=== PATIENT | female | born 1995 ===

== ENCOUNTER 2024-03-29 15:22 | Inpatient (IN) ==
[2024-03-29] MEDS ORDERED: CALCIUM CARBONATE 500 MG CHEWABLE TAB PO PRN (16:26)
[2024-03-29] MEDS ORDERED: LIDOCAINE 1% LOCAL 20 ML VIAL INFIL PRN (16:26)
[2024-03-29] MEDS: PENICILLIN GK 6 MU in SODIUM CHLORIDE 0.9% 250 ML IV STA (16:54)
[2024-03-29] MEDS: SODIUM CHLORIDE 0.9% 1,000 ML IV SCH (16:54)
[2024-03-29] MEDS ORDERED: INFLUENZA VACC TS2024-25(6m+)/PF (IIV3) 0.5mL Syr IM ONE (16:57)
[2024-03-29 17:02] LABS: Hematocrit (blood only) 35.5 % (37.0-47.0); Hemoglobin 11.9 g/dl (12.0-16.0); Mean Corpuscular Hemoglobin 31.6 pg (25.0-34.0); Mean Corpuscular Hgb Conc 33.5 g/dL (32.0-36.0); Mean Corpuscular Volume 94.2 fL (80.0-100.0); Mean Platelet Volume 10.8 fL (9.4-12.4); Platelet Count 209 K/uL (130-400); RDW Coefficient of Variation 12.2 % (11.5-14.5); RDW Standard Deviation 41.7 fL (36.4-46.3); Red Blood Count 3.77 M/uL (4.20-5.40); White Blood Count 7.71 K/ul (4.8-10.8)
[2024-03-29] MEDS ORDERED: SODIUM CHLORIDE 0.9% 500 ML IV ONE (17:08)
--- NOTE | 2024-03-29 17:22 | History & Physical Report ---
Date of Service March 29, 2024 Assessment & Plan (1) Encounter for supervision of normal intrauterine in primigravida, antepartum: Plan: Intrauterine at 39+ weeks in labor with probable ruptured membranes most likely following cervical exam. Will start group B strep prophylaxis. Once antibiotic has infused, and heart tracing is reactive, she is requesting to ambulate. Epidural if requested. Anticipate vaginal . History of Present Illness Primary Care Provider: NO PCP Patient is a 28-year-old female EDC 04/02/2024 who presents at 39-3/7 weeks with regular contractions and bloody show. Contractions began at 440 this morning and became more regular approximately noon today. They are now about every 5 minutes consistently. She describes several episodes of " gushes of blood" every time she urinated starting at 4:30 in the morning. She cannot decide if this was just blood or mixed with fluid or mucus. c omplicated by velamentous cord insertion and an episode of abdominal pain at 28 weeks [place] [facility] [place] Consequently it was felt her pain was because of a degenerating fibroid in the fundus of the uterus. GBS positive Allergies Allergy/AdvReac Type Severity Reaction Status Date / Time No Known Drug Allergies Allergy Verified 03/26/24 14:47 Home Medications Medication Instructions Recorded Confirmed Type vits no.126-ferrous fum 1 tab PO DAILY #30 tabs 08/25/23 03/29/24 Rx 28 mg iron-folic acid 800 mcg tablet (Classic ) Patient History Surgical History No pertinent past surgical history Family History (Updated 08/18/23 @ 11:37 by Eugenia Delgado RN) Aunt Diabetes Goiter Denies family history of Ovarian cancer Breast cancer Colorectal cancer Social History (Updated 08/18/23 @ 11:38 by Eugenia Delgado RN) Smoking Status: Never smoker Second Hand Exposure: No; Do You Dip or Chew Tobacco: No; Hx Alcohol Use: No Hx Substance Use: No Preferred Language: Luxembourgish Communication Ability: Effective Telephone Information Clerk Required: No Beliefs That Will Affect Care: None marital status: Single marital status details: Rick Leavitt (27) [phone] Current Living Situation: Alone Current Living Situation Comment: Lives with 3 roommates current occupational status: student current occupation: Student at [employer] Other Information That Helps Us Care for You: No Feels Safe at Home: Yes Safety Concerns: Feels Safe At This Time Review of Systems All systems reviewed & are unremarkable except as noted in HPI & below Physical Exam Constitutional: WD/WN, vitals as above Psychiatric: A+Ox3, euthymic affect Genitourinary: OB Exam Abdomen: + vertex, + estimated weight (7-8 pounds) and + regular contractions Manual OB Exam: + cervical dilation (2-3), + cervical effacement 80% and + station -2 OB Exam Monitor Tracing: + external FHT monitor used, + external uterine monitor used, + category I and + normal FHT variability Following the cervical exam, there was a gush of obvious fluid. Nitrazine was not done since history of episodic bleeding with urination. Ferning was equivocal. Results & Data Vital Signs (Past 12 Hours) Vital Signs Temp Pulse Resp BP 03/29/24 15:53 97.9 F 98 H 16 110/69 03/29/24 15:43 98 H 110/69 Code Status & VTE Plan VTE Prophylaxis Plan VTE Prophylaxis will be ordered: No Coding Level of Care Code 57671 INT INP/OBS CARE 1/40MIN Diagnoses Encounter for supervision of normal intrauterine in primigravida, antepartum Z34.00
[2024-03-29] MEDS ORDERED: ePHEDrine sulfate 50 MG/ML AMP ONE (18:28)
[2024-03-29] MEDS ORDERED: SODIUM CHLORIDE 0.9% PF INJ 10 ML VIAL ONE (18:28)
[2024-03-29] MEDS ORDERED: SODIUM CHLORIDE 0.9% PF INJ 10 ML VIAL EPI PRN (18:38)
[2024-03-29] MEDS ORDERED: NALOXONE HCL 1 MG in SODIUM CHLORIDE 0.9% 1,000 ML IV PRN (18:38)
[2024-03-29] MEDS ORDERED: NALOXONE HCL 0.4 MG/1 ML VIAL/CARP IV PRN (18:38)
[2024-03-29] MEDS ORDERED: NALBUPHINE HCL INJ 10 MG/ML AMP IV PRN (18:38)
[2024-03-29] MEDS ORDERED: diphenhydrAMINE 50 MG/ML VIAL IV PRN (18:38)
[2024-03-29] MEDS ORDERED: LIDOCAINE 2% MPF LOCAL 5 ML VIAL EPI PRN (18:38)
[2024-03-29] MEDS ORDERED: BUPIVACAINE 0.25% PF 30 ML VIAL EPI PRN (18:38)
[2024-03-29] MEDS ORDERED: LIDOCAINE 2%/EPINEPHRINE 1:200,000 20 ML PF EPI STA (18:38)
[2024-03-29] MEDS ORDERED: SODIUM CHLORIDE 0.9% PF INJ 10 ML VIAL EPI STA (18:38)
[2024-03-29] MEDS ORDERED: ePHEDrine sulfate 50 MG/ML AMP IV PRN (18:38)
[2024-03-29] MEDS ORDERED: fentANYL 2 MCG/ML BUPIVacaine 0.125%-NSS 100ML BAG EPI PRN (18:38)
[2024-03-29] MEDS ORDERED: fentaNYL citrate PF 100 MCG/2 ML VIAL EPI PRN (18:38)
[2024-03-29] MEDS ORDERED: fentaNYL citrate PF 100 MCG/2 ML VIAL EPI STA (18:38)
[2024-03-29] MEDS ORDERED: BUPIVACAINE 0.25% PF 30 ML VIAL EPI STA (18:38)
[2024-03-29] MEDS ORDERED: ROPIVACAINE 0.5% PF 5 MG/ML 20 ML VIAL EPI PRN (18:38)
--- NOTE | 2024-03-29 18:38 | Anesthesiology Consultation ---
Date of Service March 29, 2024 Assessment & Plan (1) Encounter for pre-operative examination: Chart Review Chart Review: Patient NOT seen in Pre Admission Testing and Acceptable Risk for Labor Epidural Consults Requested none History Height/Weight Height: 5 ft 7 in Weight: 70 kg Allergies Allergy/AdvReac Type Severity Reaction Status Date / Time No Known Drug Allergies Allergy Verified 03/26/24 14:47 Medications Home Medications Medication Instructions Recorded Confirmed Last Taken vits no.126-ferrous fum 1 tab PO DAILY #30 tabs 08/25/23 03/29/24 03/28/24 21:00 28 mg iron-folic acid 800 mcg tablet (Classic ) Active Medications Generic Name Dose Route Start Last Admin Trade Name Freq PRN Reason Stop Dose Admin Sodium Chloride 1,000 mls @ 50 mls/hr 03/29/24 17:15 03/29/24 18:19 Nss IV 03/30/24 17:14 999 mls/hr .Q20H ELIAN Infusion Past Family History Family History Aunt Diabetes Goiter Denies family history of Ovarian cancer Breast cancer Colorectal cancer Past Surgical History Surgical History No pertinent past surgical history Social History Smoking Status: Never smoker Do You Dip or Chew Tobacco: No Hx Alcohol Use: No Hx Substance Use: No Physical Exam Vital Signs Last Vital Signs Temp 97.9 F 03/29/24 15:53 Pulse 98 H 03/29/24 15:53 Resp 16 03/29/24 15:53 BP 110/69 03/29/24 15:53 Testing Laboratory Results 03/29/24 16:45
[2024-03-29] MEDS: fentANYL 2 MCG/ML BUPIVacaine 0.125%-NSS 100ML BAG ONE (19:02)
[2024-03-29] MEDS: fentaNYL citrate PF 100 MCG/2 ML VIAL ONE (19:02)
[2024-03-29] MEDS: BUPIVACAINE 0.25% PF 30 ML VIAL ONE (19:03)
[2024-03-29] MEDS: LIDOCAINE 2%/EPINEPHRINE 1:200,000 20 ML PF ONE (19:03)
--- NOTE | 2024-03-29 20:23 | Labor Progress Brief Note ---
Date of Service March 29, 2024 Subjective Reason For Note: Routine Evaluation comfortable with epidural analgesia FHR Category 1 contractions Q2-5 minutes cervix exam 5/90/-1 will augment with pitocin to get a better contraction pattern. Assessment & Plan Admission and Anticipated Discharge Date Admission Date: March 29, 2024 Results & Data Vital Signs (Past 12 Hours) Vital Signs Temp Pulse Resp BP Pulse Ox 03/29/24 20:18 100 03/29/24 20:18 80 03/29/24 20:13 100 03/29/24 20:13 77 03/29/24 20:09 76 03/29/24 20:09 116/77 03/29/24 20:08 100 03/29/24 20:08 80 03/29/24 20:03 100 03/29/24 20:03 76 03/29/24 20:00 94 03/29/24 20:00 77 03/29/24 19:58 96 03/29/24 19:58 82 03/29/24 19:53 100 03/29/24 19:53 82 03/29/24 19:53 108/63 03/29/24 19:48 100 03/29/24 19:48 77 03/29/24 19:43 100 03/29/24 19:43 83 03/29/24 19:38 100 03/29/24 19:38 84 03/29/24 19:38 109/70 03/29/24 19:36 83 03/29/24 19:36 105/62 03/29/24 19:35 88 03/29/24 19:35 103/59 L 03/29/24 19:33 100 03/29/24 19:33 92 H 03/29/24 19:32 16 03/29/24 19:32 97.7 F 16 03/29/24 19:30 98 H 03/29/24 19:30 102/67 03/29/24 19:28 100 03/29/24 19:28 87 03/29/24 19:28 99/68 L 03/29/24 19:26 82 03/29/24 19:26 107/66 03/29/24 19:24 88 03/29/24 19:24 104/64 03/29/24 19:23 99 03/29/24 19:23 86 03/29/24 19:22 87 03/29/24 19:22 102/62 03/29/24 19:20 85 03/29/24 19:20 100/63 03/29/24 19:18 92 03/29/24 19:18 88 03/29/24 19:18 93 H 03/29/24 19:18 106/69 03/29/24 19:16 88 03/29/24 19:16 109/73 03/29/24 19:14 94 03/29/24 19:14 82 03/29/24 19:14 80 03/29/24 19:14 105/61 03/29/24 19:13 97 03/29/24 19:13 90 03/29/24 19:12 93 H 03/29/24 19:12 112/65 03/29/24 19:10 90 03/29/24 19:10 105/65 03/29/24 19:08 100 03/29/24 19:08 86 03/29/24 19:08 103/60 03/29/24 19:06 92 H 03/29/24 19:06 105/60 03/29/24 19:04 84 03/29/24 19:04 107/59 L 03/29/24 19:03 100 03/29/24 19:03 88 03/29/24 19:02 83 03/29/24 19:02 95/54 L 03/29/24 19:00 80 03/29/24 19:00 100/55 L 03/29/24 18:59 94 03/29/24 18:59 92 H 03/29/24 18:58 100 03/29/24 18:58 88 03/29/24 18:58 119/63 03/29/24 18:56 90 03/29/24 18:56 123/59 L 03/29/24 18:54 87 03/29/24 18:54 130/59 L 03/29/24 18:53 96 03/29/24 18:53 83 03/29/24 18:48 100 03/29/24 18:48 87 03/29/24 18:46 83 03/29/24 18:46 128/59 L 03/29/24 15:53 97.9 F 98 H 16 110/69 03/29/24 15:43 98 H 110/69 Coding Level of Care Code 61015 SUB INP/OBS CARE
[2024-03-29] MEDS: OXYTOCIN 30 UNITS/NSS 30 UNITS/500 ML BAG IV PRN (20:45)
[2024-03-29] MEDS: PENICILLIN GK 3 MU in DEXTROSE 5% 100 ML IV PRN (20:48)
[2024-03-29] MEDS: ACETAMINOPHEN 325 MG TAB PO PRN (22:48)
[2024-03-30] MEDS: OXYTOCIN 30 UNITS/NSS 30 UNITS/500 ML BAG IV PRN (00:18)
[2024-03-30] MEDS ORDERED: ACETAMINOPHEN 325 MG TAB PO PRN (00:39)
[2024-03-30] MEDS ORDERED: oxyCODONE/ACETAMINOPHEN 5mg/325mg TAB PO PRN (00:39)
[2024-03-30] MEDS ORDERED: BENZOCAINE 20% SPRY 85 APPLN/85 GM CAN EXT PRN (00:39)
[2024-03-30] MEDS ORDERED: HYDROCORTISONE ACETATE 25 MG SUPP PR PRN (00:39)
[2024-03-30] MEDS ORDERED: OXYTOCIN 30 UNITS/NSS 30 UNITS/500 ML BAG IV PRN (00:39)
[2024-03-30] MEDS ORDERED: bisacodyL 10 MG SUPP PR PRN (00:39)
[2024-03-30] MEDS ORDERED: DIPHTHER/TETAN/PERTUS Vaccine (Tdap, Adol/Adult) 0.5mL IM ONE (00:39)
--- NOTE | 2024-03-30 01:35 | Delivery Summary ---
Vaginal Delivery Summary Date of Service March 30, 2024 Vaginal Delivery Summary and 1st Degree LAC (perineal) Patient is a 28-year-old female EDC of 04/02/2024 who presented at 39-4/7 weeks in labor. Membranes ruptured spontaneously for clear fluid. She received effective epidural analgesia. She also received adequate GBS prophylaxis. She did require Pitocin augmentation but progressed to full dilation with the urge to push. She pushed effectively over intact perineum for delivery of a viable female . After the head was delivered a loose nuchal cord was reduced prior to the delivering the rest the infant which was done without maternal effort. The infant was placed on the mother's abdomen for further attention and drying. She was vigorous crying and moving all 4 limbs. After 1 minute, the cord was clamped and cut. After cord blood was obtained, the placenta was expressed intact with a three-vessel cord. bleeding was controlled with dilute Pitocin and fundal massage. A first-degree perineal laceration was repaired with 2-0 chromic in the usual fashion. QBL was 500 cc. Mother and infant were doing well after [place] [facility] [place] [facility] [place] Charge Delivery Type Details: and 1st Degree LAC (perineal)
--- NOTE | 2024-03-30 08:17 | Anesthesia Procedure Note ---
Date of Service March 30, 2024 Anesthesia Post Epidural Note Vital Signs Vital Signs: Temp Pulse Resp BP Pulse Ox O2 Del Method 36.7 C 89 16 106/69 100 Room Air 03/30/24 07:17 03/30/24 07:17 03/30/24 07:17 03/30/24 07:17 03/30/24 07:17 03/30/24 07:17 Pain Intensity Lower Medial Abdomen: Pain Intensity: 0 Notes Mental Status: alert / awake / arousable and participated in evaluation Nausea / Vomiting: adequately controlled Pain: adequately controlled Airway Patency, RR, SpO2: stable & adequate BP & HR: stable & adequate Hydration State: stable & adequate Neuraxial Anesthesia: was administered and sensory block is resolving Anesthetic Complications: no major complications apparent Epidural: Removed without complications and With tip intact
[2024-03-30] MEDS: PRENATAL VITAMIN 1 TAB PO SCH (08:33)
[2024-03-30] MEDS: DOCUSATE SODIUM 100 MG CAP PO SCH (08:33)
[2024-03-30] MEDS: IBUPROFEN 600 MG TAB PO PRN (08:34)
--- NOTE | 2024-03-30 09:03 | Obstetrical Progress Note ---
Date of Service March 30, 2024 Assessment & Plan (1) Encounter for care and examination after delivery: expected progress continue current care plan Subjective Ambulation: ambulating normally Voiding: no voiding problems Passing Gas:: Yes Diet Tolerance:: regular diet Lochia:: Moderate Feeding Type:: breast feeding no concerns this morning. minimal cramping. lochia normal Review of Systems All systems reviewed & are unremarkable except as noted in HPI & below Physical Exam Constitutional WD/WN, vitals as above Psychiatric A+Ox3, euthymic affect Genitourinary OB Exam Abdomen: + fundal height Fundus: + firm and + relation to umbilicus (1 above U/ 2cm fundal fibroid palpable) Results & Data Vital Signs (Past 12 Hours) Vital Signs Temp Pulse Pulse Pulse Pulse Resp BP 03/30/24 07:17 98.1 F 89 16 03/30/24 03:05 98.1 F 81 81 16 03/30/24 02:30 18 03/30/24 02:30 97.5 F L 18 03/30/24 02:28 108 H 03/30/24 02:25 91 H 104/61 03/30/24 02:23 94 H 03/30/24 02:18 93 H 03/30/24 02:13 101 H 03/30/24 02:08 93 H 03/30/24 02:03 106 H 03/30/24 01:58 107 H 03/30/24 01:54 93 H 110/65 03/30/24 01:53 104 H 03/30/24 01:48 97 H 03/30/24 01:43 87 03/30/24 01:40 94 H 03/30/24 01:38 92 H 03/30/24 01:33 98 H 03/30/24 01:30 104 H 03/30/24 01:28 91 H 03/30/24 01:24 80 110/67 03/30/24 01:23 79 03/30/24 01:18 78 03/30/24 01:13 82 03/30/24 01:08 85 128/86 03/30/24 01:03 98 H 03/30/24 01:01 86 03/30/24 00:58 84 03/30/24 00:53 86 127/80 03/30/24 00:48 87 03/30/24 00:43 85 03/30/24 00:39 100 H 129/71 03/30/24 00:38 97 H 03/30/24 00:33 89 03/30/24 00:28 99 H 03/30/24 00:23 93 H 03/30/24 00:18 97 H 03/30/24 00:13 119 H 03/30/24 00:09 81 106/61 03/30/24 00:08 81 03/30/24 00:03 97 H 03/29/24 23:58 03/29/24 23:58 109 H 03/29/24 23:54 86 03/29/24 23:54 103/67 03/29/24 23:53 03/29/24 23:53 91 H 03/29/24 23:48 03/29/24 23:48 91 H 03/29/24 23:43 03/29/24 23:43 76 03/29/24 23:39 74 03/29/24 23:39 101/58 L 03/29/24 23:38 03/29/24 23:38 80 03/29/24 23:33 03/29/24 23:33 83 03/29/24 23:28 16 03/29/24 23:28 97.5 F L 16 03/29/24 23:28 03/29/24 23:28 79 03/29/24 23:24 77 03/29/24 23:24 116/72 03/29/24 23:23 03/29/24 23:23 77 03/29/24 23:18 03/29/24 23:18 78 03/29/24 23:13 03/29/24 23:13 79 03/29/24 23:10 73 03/29/24 23:10 109/70 03/29/24 23:08 03/29/24 23:08 79 03/29/24 23:03 03/29/24 23:03 79 03/29/24 22:58 03/29/24 22:58 83 03/29/24 22:54 80 03/29/24 22:54 109/74 03/29/24 22:53 03/29/24 22:53 86 03/29/24 22:48 03/29/24 22:48 91 H 03/29/24 22:43 03/29/24 22:43 83 03/29/24 22:39 76 03/29/24 22:39 111/80 03/29/24 22:38 03/29/24 22:38 78 03/29/24 22:33 03/29/24 22:33 81 03/29/24 22:28 03/29/24 22:28 74 03/29/24 22:24 72 03/29/24 22:24 118/76 03/29/24 22:23 03/29/24 22:23 81 03/29/24 22:18 03/29/24 22:18 114 H 03/29/24 22:17 03/29/24 22:17 112 H 03/29/24 22:13 03/29/24 22:13 84 03/29/24 22:10 03/29/24 22:10 90 03/29/24 22:10 89 03/29/24 22:10 114/78 03/29/24 22:08 03/29/24 22:08 82 03/29/24 22:03 03/29/24 22:03 89 03/29/24 21:58 03/29/24 21:58 87 03/29/24 21:54 78 03/29/24 21:54 110/80 03/29/24 21:53 03/29/24 21:53 83 03/29/24 21:48 03/29/24 21:48 89 03/29/24 21:43 03/29/24 21:43 86 03/29/24 21:39 92 H 03/29/24 21:39 128/86 03/29/24 21:38 03/29/24 21:38 88 03/29/24 21:33 03/29/24 21:33 86 03/29/24 21:28 03/29/24 21:28 84 03/29/24 21:24 83 03/29/24 21:24 124/84 03/29/24 21:23 03/29/24 21:23 81 03/29/24 21:18 03/29/24 21:18 91 H 03/29/24 21:16 18 03/29/24 21:16 97.7 F 18 03/29/24 21:13 03/29/24 21:13 85 03/29/24 21:09 88 03/29/24 21:09 124/84 03/29/24 21:08 03/29/24 21:08 82 03/29/24 21:03 03/29/24 21:03 80 BP Pulse Ox O2 Del Method 03/30/24 07:17 106/69 100 Room Air 03/30/24 03:05 109/70 100 Room Air 03/30/24 02:30 03/30/24 02:30 03/30/24 02:28 100 03/30/24 02:25 03/30/24 02:23 100 03/30/24 02:18 100 03/30/24 02:13 100 03/30/24 02:08 100 03/30/24 02:03 100 03/30/24 01:58 99 03/30/24 01:54 03/30/24 01:53 100 03/30/24 01:48 100 03/30/24 01:43 99 03/30/24 01:40 92 03/30/24 01:38 96 03/30/24 01:33 99 03/30/24 01:30 93 03/30/24 01:28 100 03/30/24 01:24 03/30/24 01:23 100 03/30/24 01:18 100 03/30/24 01:13 100 03/30/24 01:08 100 03/30/24 01:03 99 03/30/24 01:01 90 03/30/24 00:58 100 03/30/24 00:53 100 03/30/24 00:48 100 03/30/24 00:43 100 03/30/24 00:39 03/30/24 00:38 100 03/30/24 00:33 100 03/30/24 00:28 100 03/30/24 00:23 100 03/30/24 00:18 100 03/30/24 00:13 100 03/30/24 00:09 03/30/24 00:08 100 03/30/24 00:03 98 03/29/24 23:58 100 03/29/24 23:58 03/29/24 23:54 03/29/24 23:54 03/29/24 23:53 100 03/29/24 23:53 03/29/24 23:48 100 03/29/24 23:48 03/29/24 23:43 100 03/29/24 23:43 03/29/24 23:39 03/29/24 23:39 03/29/24 23:38 100 03/29/24 23:38 03/29/24 23:33 100 03/29/24 23:33 03/29/24 23:28 03/29/24 23:28 03/29/24 23:28 100 03/29/24 23:28 03/29/24 23:24 03/29/24 23:24 03/29/24 23:23 100 03/29/24 23:23 03/29/24 23:18 100 03/29/24 23:18 03/29/24 23:13 100 03/29/24 23:13 03/29/24 23:10 03/29/24 23:10 03/29/24 23:08 100 03/29/24 23:08 03/29/24 23:03 100 03/29/24 23:03 03/29/24 22:58 99 03/29/24 22:58 03/29/24 22:54 03/29/24 22:54 03/29/24 22:53 100 03/29/24 22:53 03/29/24 22:48 100 03/29/24 22:48 03/29/24 22:43 100 03/29/24 22:43 03/29/24 22:39 03/29/24 22:39 03/29/24 22:38 100 03/29/24 22:38 03/29/24 22:33 100 03/29/24 22:33 03/29/24 22:28 100 03/29/24 22:28 03/29/24 22:24 03/29/24 22:24 03/29/24 22:23 100 03/29/24 22:23 03/29/24 22:18 95 03/29/24 22:18 03/29/24 22:17 92 03/29/24 22:17 03/29/24 22:13 95 03/29/24 22:13 03/29/24 22:10 94 03/29/24 22:10 03/29/24 22:10 03/29/24 22:10 03/29/24 22:08 100 03/29/24 22:08 03/29/24 22:03 100 03/29/24 22:03 03/29/24 21:58 100 03/29/24 21:58 03/29/24 21:54 03/29/24 21:54 03/29/24 21:53 100 03/29/24 21:53 03/29/24 21:48 100 03/29/24 21:48 03/29/24 21:43 100 03/29/24 21:43 03/29/24 21:39 03/29/24 21:39 03/29/24 21:38 100 03/29/24 21:38 03/29/24 21:33 100 03/29/24 21:33 03/29/24 21:28 100 03/29/24 21:28 03/29/24 21:24 03/29/24 21:24 03/29/24 21:23 100 03/29/24 21:23 03/29/24 21:18 100 03/29/24 21:18 03/29/24 21:16 03/29/24 21:16 03/29/24 21:13 100 03/29/24 21:13 03/29/24 21:09 03/29/24 21:09 03/29/24 21:08 100 03/29/24 21:08 03/29/24 21:03 100 03/29/24 21:03
[2024-03-31 06:54] LABS: Hematocrit (blood only) 26.6 % (37.0-47.0); Hemoglobin 9.1 g/dl (12.0-16.0); Mean Corpuscular Hemoglobin 32.4 pg (25.0-34.0); Mean Corpuscular Hgb Conc 34.2 g/dL (32.0-36.0); Mean Corpuscular Volume 94.7 fL (80.0-100.0); Mean Platelet Volume 11.1 fL (9.4-12.4); Platelet Count 176 K/uL (130-400); RDW Coefficient of Variation 12.2 % (11.5-14.5); RDW Standard Deviation 42.1 fL (36.4-46.3); Red Blood Count 2.81 M/uL (4.20-5.40); White Blood Count 9.87 K/ul (4.8-10.8)
--- NOTE | 2024-03-31 08:28 | Obstetrical Progress Note ---
Date of Service March 31, 2024 Assessment & Plan (1) Encounter for care and examination after delivery: Doing well, hopes to stay until tomorrow AM due to heavy winter weather complicating travel today as well as relatively early in her recovery this AM. Subjective Ambulation: ambulating normally Voiding: no voiding problems Passing Gas:: Yes Diet Tolerance:: regular diet Lochia:: Small Feeding Type:: breast feeding Physical Exam Constitutional WD/WN, vitals as above Eyes PERRL, conjunctivae normal, anicteric sclerae Neck normal visual inspection Respiratory normal respiratory effort and able to speak in complete sentences; no respiratory distress and no labored breathing Cardiovascular Rate/Rhythm: regular rate and regular rhythm Extremities: no edema Chest (Breasts) Chest: normal inspection of chest Gastrointestinal (Abdomen) Inspection/Auscultation: abdomen normal to inspection Soft, postgravid Psychiatric A+Ox3, euthymic affect Genitourinary OB Exam Abdomen: + fundal height Fundus: + firm and + relation to umbilicus (fundus just below umbilicus); not tender Results & Data Vital Signs (Past 12 Hours) Vital Signs Temp Pulse Resp BP Pulse Ox O2 Del Method 03/30/24 22:59 97.9 F 90 18 102/64 100 Room Air
[2024-03-31 11:21] VITALS: O2SAT 99
[2024-03-31] MEDS: bisacodyL 5 MG TABEC PO SCH (20:11)
[2024-03-31 20:17] VITALS: TEMP 98.6
[2024-04-01 00:14] VITALS: BP 111/71; RESP 16
[2024-04-01 06:19] LABS: Hematocrit (blood only) 28.8 % (37.0-47.0); Hemoglobin 9.7 g/dl (12.0-16.0)
--- NOTE | 2024-04-01 06:46 | Obstetrical Progress Note ---
Date of Service April 01, 2024 Assessment & Plan (1) Encounter for care and examination after delivery: Plan: P1 following with 1st deg perineal tear at term. Post : Uneventful Both mom and baby doing well. Discharge today (2) Group B streptococcal infection during : Admission and Anticipated Discharge Date Admission Date: March 29, 2024 Supervising Physician Co-Signing Physician Notes Resident Physician Supervision Note: I interviewed and examined the patient. Discussed with Dr. Sotomayor and agree with findings and plan as documented in the note. Any exceptions or clarifications are listed here: [ ] Documented By: Day Castorena MD, FACOG Subjective 2nd Day following with 1st deg tear in G1 P at 39+ week POG. No active complains Both mom and baby doing well. Pain: Mild, intermittent Lochia: Moderate Diet: Regular Ob diet Gas: Passed Peeing: Normal, no bladder distension Ambulation: Normally Plan: Both mom and baby doing well. Discharge today Review of Systems Review of Systems: No SOB, chest pain, leg pain No dizziness, headache, palpitation No Blurring of vision , fever Physical Exam Physical Exam: General: Alert and oriented. No acute distress. CVS: S1 S2+ No murmurs, regular rhythm. Respiratory: CTA bilaterally. No rhonchi, wheezes, or crackles. No increased work of breathing. Abdomen: Bowel sound +. Soft, nontender Uterus: Fundus firm and palpable above pubis. Involuting well. Lower extremities: No LE edema. No deep calf pain. Results & Data Vital Signs (Past 12 Hours) Vital Signs Temp Pulse Resp BP O2 Del Method 04/01/24 00:13 37.0 C 100 H 16 111/71 Room Air 03/31/24 20:00 37.0 C 102 H 18 98/61 L Room Air Resident Activity Tracking Resident Involvement: Resident Care Provided Care Provided: OB Delivery
[2024-04-01 08:51] VITALS: PULSE 81
== END 2024-04-01 12:59 | disposition home or self-care (01) | DRG 807 ==
LOC: OPB 15:22 → 4S1 15:24 → 4E2 03-30 03:10